=== PATIENT | female | born 1990 ===

== ENCOUNTER 2025-04-05 10:19 | Emergency (ER) | payer OTHER, SELFPAY ==
[2025-04-05] MEDS ORDERED: PRENTAB9 PO (10:47)
== END 2025-04-05 10:24 | disposition admitted as inpatient to this hospital (09) ==
LOC: M ED 10:19
DX: Z53.20 Procedure and treatment not carried out because of patient's decision for unspecified reasons (principal)

== ENCOUNTER 2025-04-05 10:30 | Outpatient (CLI) | payer OTHER ==
[~2025-04-05] VITALS: Ht 162.6 cm; Wt 97.3 kg
[2025-04-05] MEDS ORDERED: PRENTAB9 PO (10:47)
[2025-04-05] MEDS ORDERED: HOME MED LIST COMPLETE! XX SCH (10:50)
[2025-04-05 10:52] VITALS: BP 116/75
[2025-04-05 12:13] VITALS: BP 122/81
[2025-04-05 14:06] LABS: GC DNA AMPLIFICATION NEGATIVE (NEGATIVE)
== END 2025-04-05 13:07 | disposition home or self-care (01) ==
LOC: M LDO 10:30
PROVIDERS: ATTEND Obstetrics & Gynecology
DX: O26.853 Spotting complicating pregnancy, third trimester (principal); O09.523 Supervision of elderly multigravida, third trimester; Z3A.26 26 weeks gestation of pregnancy
CPT/HCPCS: 59025; 87810; 87850; G0463